=== PATIENT | female | born 1970 | race African-American/Black ===

== ENCOUNTER 2022-12-19 12:32 | Emergency (ER) | payer OTHER ==
[2022-12-19 12:42] VITALS: RESP 18; TEMP 98.1; BMI 38.0
[2022-12-19] MEDS ORDERED: SODIUM CHLORIDE 0.9% 500 ML INFUS.BAG IV ONE (13:35)
[2022-12-19] MEDS ORDERED: ACETAMINOPHEN 1000 MG/100 ML BAG IVPB ONE (13:35)
[2022-12-19] MEDS ORDERED: ONDANSETRON 4 MG/2 ML VIAL IVPB ONE (13:35)
[2022-12-19] MEDS ORDERED: ACETAMINOPHEN INJECTION 100 ML IVPB ONE (13:43)
[2022-12-19] MEDS ORDERED: ONDANSETRON 4 MG/2 ML VIAL ONE (13:43)
[2022-12-19 14:21] LABS: HEMATOCRIT 39.4 % (32.4-45.2); HEMOGLOBIN 12.5 GM/dL (10.7-15.3); MCH 26.3 pg (25.7-33.7); MCHC 31.6 g/dl (32.0-36.0); MEAN PLT VOLUME 10.1 fl (7.5-11.1); PLATELET COUNT 209 10^3/uL (134-434); RBC 4.75 M/mm3 (3.60-5.2); RDW 17.8 % (11.6-15.6); WHITE BLOOD COUNT 3.2 K/mm3 (4.0-10.0)
[2022-12-19 14:39] LABS: POTASSIUM 3.9 mmol/L (3.5-5.1)
[2022-12-19 14:43] LABS: BLOOD UREA NITROGEN 6.5 mg/dL (7-18)
[2022-12-19 14:44] LABS: MAGNESIUM 2.1 mg/dL (1.8-2.4)
[2022-12-19 14:46] LABS: CREATININE 0.8 mg/dL (0.55-1.3); PHOSPHOROUS 3.9 mg/dL (2.5-4.9)
[2022-12-19 14:48] LABS: BILIRUBIN,TOTAL 0.5 mg/dL (0.2-1); TOT PROT 7.3 g/dl (6.4-8.2)
[2022-12-19 16:10] LABS: PH,URINE 5.5 (5.0-8.0); URINE APPEARANCE CLEAR; URINE BILIRUBIN NEGATIVE (NEGATIVE); URINE COLOR YELLOW; URINE GLUCOSE (UA) NEGATIVE (NEGATIVE); URINE KETONE NEGATIVE (NEGATIVE); URINE LEUK ESTERASE NEGATIVE (NEGATIVE); URINE NITRITE NEGATIVE (NEGATIVE); URINE PROTEIN NEGATIVE (NEGATIVE); URINE UROBILINOGEN 0.2 mg/dL (0.2-1.0)
[2022-12-19] MEDS ORDERED: FAMOTIDINE 20 MG/50 ML IVPB 20 MG/50 ML MG IVPB ONE ×2 (17:24→17:29)
[2022-12-19 17:53] VITALS: BP 127/80; PULSE 62
== END 2022-12-19 17:59 | disposition home or self-care (01) ==
LOC: JER 12:32
PROC: 3E033GC Introduction of Other Therapeutic Substance into Peripheral Vein, Percutaneous Approach (ICD-10-PCS; principal; 2022-12-19)
PROC: 3E033NZ Introduction of Analgesics, Hypnotics, Sedatives into Peripheral Vein, Percutaneous Approach (ICD-10-PCS; 2022-12-19)
PROC: 3E033GC Introduction of Other Therapeutic Substance into Peripheral Vein, Percutaneous Approach (ICD-10-PCS; 2022-12-19)
DX: G89.18 Other acute postprocedural pain (principal); R10.84 Generalized abdominal pain; K59.00 Constipation, unspecified
CPT/HCPCS: 36415; 74177-TC; 80053; 81003; 83605; 83690; 83735; 84100; 85027; 86850; 86900; 86901; 87086; 99285-25; Q9967

== ENCOUNTER 2023-03-09 15:57 | Emergency (ER) | payer OTHER ==
[2023-03-09 16:12] VITALS: BP 95/65; PULSE 76; RESP 20; TEMP 98.5; BMI 36.3
[2023-03-09] MEDS ORDERED: ACETAMINOPHEN 1000 MG/100 ML BAG IVPB ONE (17:29)
[2023-03-09] MEDS ORDERED: ACETAMINOPHEN INJECTION 100 ML IVPB ONE (17:46)
[2023-03-09 18:47] LABS: BASO % 0.7 % (0-2.0); EOS % 1.7 % (0-4.5); HEMATOCRIT 38.9 % (32.4-45.2); HEMOGLOBIN 12.4 GM/dL (10.7-15.3); LYMPH % 36.1 % (8-40); MCHC 31.8 g/dl (32.0-36.0); MEAN CELL VOLUME 84.7 fl (80-96); MEAN PLT VOLUME 9.5 fl (7.5-11.1); MONO % 19.4 % (3.8-10.2); NEUT % 42.1 % (42.8-82.8); PLATELET COUNT 186 10^3/uL (134-434); WHITE BLOOD COUNT 2.7 K/mm3 (4.0-10.0)
[2023-03-09 19:05] LABS: POTASSIUM 3.8 mmol/L (3.5-5.1)
[2023-03-09 19:10] LABS: ALBUMIN 3.4 g/dl (3.4-5.0); BLOOD UREA NITROGEN 12.3 mg/dL (7-18); CALCIUM 8.9 mg/dL (8.5-10.1)
[2023-03-09 19:15] LABS: BILIRUBIN,TOTAL 0.3 mg/dL (0.2-1); TOT PROT 6.8 g/dl (6.4-8.2)
[2023-03-09 19:26] LABS: CREATININE 0.7 mg/dL (0.55-1.3)
== END 2023-03-09 20:51 | disposition home or self-care (01) ==
LOC: JER 15:57
PROC: 3E033NZ Introduction of Analgesics, Hypnotics, Sedatives into Peripheral Vein, Percutaneous Approach (ICD-10-PCS; principal; 2023-03-09)
DX: U07.1 COVID-19 (principal); R07.9 Chest pain, unspecified; R51.9 Headache, unspecified; R05.9 Cough, unspecified; M79.10 Myalgia, unspecified site; R68.83 Chills (without fever)
CPT/HCPCS: 0241U-QW; 36415; 71045-TC-FY; 80053; 84439; 84443; 84484; 85025; 93005; 93010; 99285-25

== ENCOUNTER 2023-06-28 07:14 | Emergency (ER) | payer OTHER ==
[2023-06-28 07:27] VITALS: BP 126/85; PULSE 63; RESP 18; TEMP 98.2; BMI 35.5
[2023-06-28] MEDS ORDERED: ACETAMINOPHEN 325 MG TABLET (FP) PO ONE (07:54)
[2023-06-28] MEDS ORDERED: LIDOCAINE 5% TOPICAL PATCH TP ONE (07:54)
[2023-06-28] MEDS ORDERED: ACETAMINOPHEN 325 MG TABLET (FP) ONE (07:57)
[2023-06-28] MEDS ORDERED: LIDOCAINE 4% PATCH TP ONE (07:58)
[2023-06-28] MEDS ORDERED: KETOROLAC TROMETHAMINE 15 MG/ML VIAL IM ONE (08:01)
[2023-06-28] MEDS ORDERED: KETOROLAC TROMETHAMINE 15 MG/ML VIAL ONE (08:14)
== END 2023-06-28 09:18 | disposition home or self-care (01) ==
LOC: JER 07:14
PROC: 3E0233Z Introduction of Anti-inflammatory into Muscle, Percutaneous Approach (ICD-10-PCS; principal; 2023-06-28)
DX: M25.561 Pain in right knee (principal); X50.0XXA Overexertion from strenuous movement or load, initial encounter
CPT/HCPCS: 73562-TC-RT-FY; 99284-25

== ENCOUNTER 2023-12-15 19:37 | Emergency (ER) | payer OTHER ==
[2023-12-15 20:10] VITALS: BP 129/87; PULSE 81; RESP 20; TEMP 98; BMI 35.2
[2023-12-15] MEDS ORDERED: METHOCARBAMOL 500 MG TABLET ONE (20:24)
[2023-12-15] MEDS ORDERED: LIDOCAINE 4% PATCH TP ONE (20:25)
[2023-12-15] MEDS ORDERED: KETOROLAC TROMETHAMINE 30 MG/1 ML VIAL ONE (20:25)
[2023-12-15] MEDS: KETOROLAC TROMETHAMINE 30 MG/1 ML VIAL IM ONE (20:55)
[2023-12-15] MEDS: METHOCARBAMOL 500 MG TABLET PO ONE (20:55)
[2023-12-15] MEDS: LIDOCAINE 5% TOPICAL PATCH TP ONE (20:55)
[2023-12-15] MEDS: LIDOCAINE PATCH REMOVAL MC SCH (22:04)
== END 2023-12-15 22:39 | disposition home or self-care (01) ==
LOC: JER 19:37
PROC: 3E0133Z Introduction of Anti-inflammatory into Subcutaneous Tissue, Percutaneous Approach (ICD-10-PCS; principal; 2023-12-15)
DX: M16.11 Unilateral primary osteoarthritis, right hip (principal); M25.551 Pain in right hip; M79.661 Pain in right lower leg
CPT/HCPCS: 73502-TC-RT-FY; 93971-TC; 99284-25